=== PATIENT | female | born 1955 | race Caucasian/White ===

== ENCOUNTER 2019-06-10 19:10 | Emergency (ER) | payer OTHER ==
[~2019-06-10] VITALS: Ht 160 cm; Wt 72.6 kg
[2019-06-10] MEDS ORDERED: SYNTHROID50 MCG (19:14)
== END 2019-06-10 22:47 | disposition home or self-care (01) ==
LOC: ER 19:10
DX: S82.031A Displaced transverse fracture of right patella, initial encounter for closed fracture (principal); W01.198A Fall on same level from slipping, tripping and stumbling with subsequent striking against other object, initial encounter; Y93.89 Activity, other specified; Y92.018 Other place in single-family (private) house as the place of occurrence of the external cause; Y99.8 Other external cause status